=== PATIENT | male | born 1980 | race Caucasian/White ===

== ENCOUNTER 2021-12-31 20:27 | Emergency (ER) | payer OTHER ==
[~2021-12-31 20:27] MED LIST: ERYTHROMYCIN O3.5 GM OS; POLYSPORIN OP3.5 GM OS
[2021-12-31] MEDS ORDERED: AMOX TR-K CLV1 EAC4 PO (21:05)
[2021-12-31] MEDS ORDERED: BACITRACIN28.4 GM TP (21:05)
== END 2021-12-31 22:04 | disposition home or self-care (01) ==
LOC: ER1 20:27
DX: S61.451A Open bite of right hand, initial encounter (principal); S61.411A Laceration without foreign body of right hand, initial encounter; F17.210 Nicotine dependence, cigarettes, uncomplicated; W54.0XXA Bitten by dog, initial encounter; Y92.009 Unspecified place in unspecified non-institutional (private) residence as the place of occurrence of the external cause
CPT/HCPCS: 12001; 96372; 99282; J1885